=== PATIENT | female | born 2000 | race Caucasian/White ===

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

== ENCOUNTER → 2021-01-01 | Outpatient (CLI) | payer OTHER ==
[~2021-01-01] MED LIST changes: +ONDA4TAB6 PO; +REGL10TA6 PO; +ZOFR4TAB16 PO
--- NOTE | 2021-01-01 14:37 | REP ---
INDICATION: 32+ FERAL GROWTH SIZE VS DATES COMPARISON: None. TECHNIQUE: Transabdominal obstetrical ultrasound with color Doppler evaluation. FINDINGS: Examination demonstrates a single live intrauterine in cephalic presentation. motion is identified by technologist. Placenta is noted posterior and grade 1 without evidence for placenta previa or abruption. Amniotic fluid volume is normal. Gestational age by LMP and 1st U/S 34 weeks 1 day with BEV 02/11/2021. Gestational age by current measurements 34 weeks 4 days with BEV 02/08/2021. FHR equals 153 beats per minute. BPD: 8.5 cm at 34 weeks 1 day HC: 30.8 cm at 34 weeks 2 days AC: 30.0 cm at 33 weeks 6 days FL: 6.7 cm at 34 weeks 5 days HL: 6.2 cm at 35 weeks 6 days HC/AC: 1.03 Estimated weight 2371 grams (46thpercentile). KB: 9.9 cm Umbilical artery SD ratio: 2.37 (1.73-3.67) IMPRESSION: Single live advanced gestation in cephalic presentation demonstrating appropriate estimated weight and growth. <Electronically signed by Daniel Camacho > 01/01/21 [id number]
== END ==
LOC: M RAD 13:39
PROVIDERS: ATTEND Nurse Practitioner Women's Health
DX: O26.843 Uterine size-date discrepancy, third trimester (principal); Z3A.34 34 weeks gestation of pregnancy

== ENCOUNTER 2021-01-06 16:27 | Outpatient (CLI) | payer OTHER ==
[~2021-01-06] VITALS: Ht 154.9 cm; Wt 63.0 kg
[2021-01-06] MEDS ORDERED: UNIS25TA3 PO (16:44)
[2021-01-06] MEDS ORDERED: B6/F1TAB PO (16:46)
[2021-01-06] MEDS ORDERED: URSO300C3 PO (16:46)
[2021-01-06 16:49] VITALS: BP 119/75
[2021-01-06 17:20] VITALS: BP 119/75
--- NOTE | 2021-01-06 17:33 | IPNPDOC ---
Text Note Date of Service The patient was seen on 01/06/21. NOTE 20 yo at 34+6 weeks gestation presented to L&D with the complaint of decreased movement. She has felt movement over the last couple days, but just not as much as usual. She denies any vaginal bleeding or leakage of fluid. She endorses intermittent abdominal tightening but it is not severe. Chaperoned by RN Vitals - VSS, afebrile, normotensive, non tachycardic General - AAOX3, sitting up in bed, NAD Abdomen - Gravid uterus appropriate size for gestational age. No fundal tenderness Extremities - No edema FHR tracing - Cat I with moderate variability, +accels, no decels. no ctx on toco. Bedside TAUS (anatomy not assessed): Viable SIUP in cephalic presentation. KB 14.2 cm. +gross movement. Patient felt movement while in the hospital room and was reassured. FHR Cat I and KB appropriate. No ctx on toco. She has a follow up appointment tomorrow. Return to care sooner for any urgent concerns. All questions answered. 30 minutes of patient care Rocio Dasilva, I+O Rocio PELAYO, I+O Vital Signs Date Time Temp Pulse Resp B/P (MAP) Pulse Ox O2 Delivery O2 Flow Rate FiO2 01/06/21 17:20 83 119/75 (90) 01/06/21 16:49 98.1 14 RAJINDER LOUIS DO Jan 06, 2021 17:33
== END 2021-01-06 17:39 | disposition home or self-care (01) ==
LOC: M LDO 16:27
PROVIDERS: ATTEND Registered Nurse Maternal Newborn
DX: O36.8130 Decreased fetal movements, third trimester, not applicable or unspecified (principal); Z3A.34 34 weeks gestation of pregnancy
CPT/HCPCS: 59025; 76815; G0378; G0463

== ENCOUNTER 2021-01-21 22:04 | Inpatient (IN) | payer OTHER ==
[~2021-01-21] VITALS: Ht 154.9 cm; Wt 66.9 kg
[~2021-01-21 22:04] MED LIST changes: +B6/F1TAB PO; +UNIS25TA3 PO; +URSO300C3 PO
[2021-01-21 22:26] VITALS: BP 124/83
[2021-01-21 22:57] LABS: HEMATOCRIT 34.2 % (36.0-47.0); HEMOGLOBIN 10.9 g/dl (12.0-15.5); MEAN CORPUSCULAR HEMOGLOBIN 27.6 pg (27.0-33.0); MEAN CORPUSCULAR HGB CONC 31.9 g/dl (32.0-36.5); MEAN CORPUSCULAR VOLUME 86.6 fl (80.0-96.0); PLATELET COUNT, AUTOMATED 224 10^3/uL (150-450); RED BLOOD COUNT 3.95 10^6/uL (4.00-5.40); WHITE BLOOD COUNT 12.4 10^3/uL (4.0-10.0)
[2021-01-21 23:28] VITALS: BP 119/74
[2021-01-21] MEDS ORDERED: PENICILLIN G POTASSIUM IV 5 MU in D5W MINI-BAG PLUS 100 ML IV STA (23:57)
[2021-01-22] VITALS (16 sets, daily range): BP systolic 104–190; BP diastolic 53–101
[2021-01-22] MEDS ORDERED: CARBOPROST TROMETHAMINE 250 MCG/ML AMP IM PRN
[2021-01-22] MEDS ORDERED: TRANEXAMIC ACID INJection 1,000 MG in NS 100 ML IV PRN ×2
[2021-01-22] MEDS ORDERED: OXYTOCIN DRIP 30 UNITS in IV 1 EA IV PRN ×6
[2021-01-22] MEDS ORDERED: OXYTOCIN INJ 10 UNITS/ML VIAL (J2590) IM PRN
[2021-01-22] MEDS ORDERED: OXYTOCIN INJ 10 UNITS/ML VIAL (J2590) IV PRN
[2021-01-22] MEDS ORDERED: LIDOCAINE 1% MDV 20ML VIAL INFIL PRN
[2021-01-22] MEDS ORDERED: METHYLERGONOVINE MALEATE 0.2 MG/ML VIAL (J2210) IM PRN
--- NOTE | 2021-01-22 00:22 | HPEPDOC ---
Obstetrical History & Physical General Date of Admission Jan 21, 2021 at 22:04 History of Present Illness Ms. Beverly Patterson is a 20yo G1 at 37w0d ega, by LMP c/w 1st trimester ultrasound, with PNC c/b Cholestasis Of , Depression / Anxiety, and Palpitations / Orthostatic Hypotension who presents for IOL. This evening, Ms. Patterson reports occasional uterine CTXs and denies LOF & VB. Endorses +FM. She also reports continued itching of her palms & soles. Chief Complaint: Other (IOL For Cholestasis Of ) Age: 20 : 1 Term: 0 Pre-term: 0 Abortions: 0 Livin Care Care: Good Care Number of Visits: 6 Dating Final EDC: Feb 11, 2021 Final EDC for Daily Update: Feb 11, 2021 Final EDC by: LMP, 1st trimester (US) LMP: May 07, 2020 1st Trimester Date: Jul 16, 2020 Weeks + Days: 9 Estimated Date of Confinement: Feb 11, 2021 EGA at Admission: 37 Antepartum Course Diagnos(e)s Cholestasis of Anxiety / Depression Palpitations / Orthostatic Hypotension Height (inches): 61 Pre- weight (lbs.): 110 Admission Weight (lbs.): 146.1 Change in Weight (lbs.): 36.1 Past Medical History Past Obstetrical History : Past Obstetrical History: Primgravida PAID INTERN History: No pertinent history Past Medical History Medical History Migraine Headaches with Aura Histocytocytosis Palpitations / Orthostatic Hypotension Surgical History: Other (Colonoscopy) Family History Significant Family History: No pertinent family hx Social History Marital Status: Single Family situation: Spouse/partner home Psychosocial History: Anxiety, Depression * Smoker: non-smoker Alcohol: Denies Drugs: denies Abuse Violence Screening Have you been hit/kicked/slapp: No Have you been sexually assault: No Imunizations Tdap status: declined Influenza Status: declined Allergies Coded Allergies: No Known Allergies (Unverified , 05/01/17) Medications Scheduled Docosahexanoic Acid ( Dha) 200 Mg Capsule, 1 CAP PO DAILY Doxylamine Succinate (Unisom Sleep Aid) 25 Mg Tablet, 1 TAB PO QPM Ursodiol (Ursodiol) 300 Mg Capsule, 1 CAP PO DAILY Miscellaneous Medications B6/Folic/B12/Coffee/Phosphatid (Neuriva Plus Gummy) 0.85MG-200 Tab.chew, 1 EACH PO Physical Examination Physical Examination GENERAL: Alert and oriented times three. ABDOMEN: Gravid and non-tender to touch. FETUS: Is vertex (VTX) by sterile vaginal examination (SVE), fetus is vertex (VTX) by Eduardo. HEART RATE: Regular rate and rhythm. LUNGS: Clear to auscultation (CTA). EXTREMITIES: No edema. Vital Signs/I&O Vital Signs Date Time Temp Pulse Resp B/P (MAP) Pulse Ox O2 Delivery O2 Flow Rate FiO2 01/21/21 23:28 65 18 119/74 (89) 01/21/21 22:26 97.0 Laboratory Data 24H LABS Laboratory Tests 2 01/21/21 22:48: Serology Scanned Report Hepatitis B Testing 01/21/21 22:50: Nucleated Red Blood Cells % (auto) 0.2H CBC/BMP Laboratory Tests 01/21/21 22:50 Urine Culture: No Growth Pertinent Laboratoy Data Blood Type: O+ RBC Antibody Screen: Negative HIV: Negative Hepatitis B: Negative Hepatitis C: Negative Rapid Plasma Reagin: Nonreactive Rubella: Immune Varicella: Immune Chlamydia/Gonorrhea: Negative Group B Streptococcus: Unknown Anatomy Ultrasound Placenta Location: Posterior Normal Anatomy: Yes Placenta Previa: No Steroid Therapy Steroid Therapy: No Vaginal Examination Dilation: None Effacement: 50% Station: -1 Cervical Consistency: Medium Cervical Position: Posterior Presentation: Cephalic presentation Assessment Heart Rate (FHR): 130 Variability: Moderate Accelerations: Positive Decelerations: None Tocometer Contractions: Yes Frequency: irregular Strength: palpated as mild Assessment/Plan Assessment Ms. Beverly Patterson is a 20yo G1 at 37w0d ega, by LMP c/w 1st trimester ultrasound, with PNC c/b Cholestasis Of , Depression / Anxiety, and Pal pitations / Orthostatic Hypotension who presents for IOL with SVE of Closed / 50 / -2. Plan Admit and orient. Medical Interpreter and consent. Diet: Clear Liquid. Group B Streptococcus (GBS) Unknown. PCN for prophylaxis even though patient is 37w0d ega Labs and intravenous (IV) per unit protocol. Counseled on induction of labor (IOL). Cytotec 50mcg po to initiate IOL. Lactated Ringers (LR): 125 mL/hr. Anticipate normal spontaneous delivery (). C-S as appropriate. GANESH MCGREGOR M.D. Jan 22, 2021 00:22
[2021-01-22] MEDS ORDERED: miSOPROStol 50MCG 1/2 TABLET PO ONE (00:25)
[2021-01-22] MEDS ORDERED: TERBUTALINE SULFATE 1 MG/ML VIAL (J3105) As Ordered ONE (01:27)
[2021-01-22] MEDS ORDERED: BUPIVACAINE HCL 0.25% 10ML VIAL SC SCH (01:40)
[2021-01-22] MEDS ORDERED: ceFAZolin SOD 2 GM in IV 1 EA IV ONE (01:40)
[2021-01-22] MEDS ORDERED: BICITRA 30ML SOLN UDC PO ONE (01:40)
--- NOTE | 2021-01-22 01:40 | IPNPDOC ---
Text Note Date of Service The patient was seen on 01/22/21. NOTE Ms. Beverly Patterson is a 20yo G1 at 37w0d ega, by LMP c/w 1st trimester u ltrasound, with PNC c/b Cholestasis Of , Depression / Anxiety, and Palpitations / Orthostatic Hypotension undergoing IOL. Pt received Cytotec 50mcg po and experienced a prolonged deceleration to the 60s secondary to uterine contraction. 0.25mg Terbutaline IM given with uterine relaxation & return of the FHT to baseline. Patient elected to proceed with PLTCS. The R/B/I/A of the procedure were reviewed and informed consent was obtained. - Ancef 2-grams iv provided - Bicitra po Geovanna Jensen., Ph.D. LEONARD Staff VS,Rocio, I+O VS, Rocio I+O Laboratory Tests 01/21/21 22:50 Vital Signs Date Time Temp Pulse Resp B/P (MAP) Pulse Ox O2 Delivery O2 Flow Rate FiO2 01/21/21 23:28 65 18 119/74 (89) 01/21/21 22:26 97.0 GANESH MCGREGOR M.D. Jan 22, 2021 01:40
[2021-01-22] MEDS ORDERED: ceFAZolin 2 GM/D5W 50 ML IV BAG (J0690 PER 500MG) As Ordered ONE (01:42)
[2021-01-22] MEDS ORDERED: BICITRA 30ML SOLN UDC As Ordered ONE (01:42)
[2021-01-22] MEDS ORDERED: diphenhydrAMINE 50MG/ML VIAL (J1200) IV PRN (02:16)
[2021-01-22] MEDS ORDERED: NALOXONE INJ 0.4MG/1ML VIAL (J2310 PER 1MG) IV PRN ×2 (02:16)
[2021-01-22] MEDS ORDERED: NALBUPHINE HCL 10 MG/ML AMP (J2300) IV PRN (02:16)
[2021-01-22] MEDS ORDERED: METOCLOPRAMIDE INJ 10MG/2ML VIAL (J2765 PER 1) IV PRN ×2 (02:16→03:15)
[2021-01-22] MEDS ORDERED: ONDANSETRON 4MG/2ML VIAL IV PRN ×2 (02:16→03:15)
[2021-01-22] MEDS ORDERED: MORPHINE PRES-FREE INJ 10 MG/10 ML VIAL (J2274) As Ordered ONE (02:46)
[2021-01-22] MEDS ORDERED: KETOROLAC 60MG 2ML VIAL As Ordered ONE (02:46)
[2021-01-22] MEDS ORDERED: OXYTOCIN 30 UNITS IN 0.9% NaCl 500ML IV BAG (J2590) As Ordered ONE ×2 (02:46→03:06)
[2021-01-22] MEDS ORDERED: ONDANSETRON 4MG/2ML VIAL As Ordered ONE (02:46)
[2021-01-22] MEDS ORDERED: dexameTHASONE 4 MG/ML 1ML VIAL (J1100 PER 1MG) As Ordered ONE (02:46)
[2021-01-22 02:58] LABS: CORD GAS ABE A -1.6; CORD GAS ABE V -1.9; CORD GAS HCO3 A 27.2 MEQ/L; CORD GAS HCO3 V 25.6 MEQ/L; CORD GAS O2 SAT A 46.9 %; CORD GAS PCO2 A 62.8 mmHg; CORD GAS PCO2 V 53.8 mmHg; CORD GAS PH A 7.255 UNITS; CORD GAS PH V 7.295 UNITS; CORD GAS PO2 A 23.1 mmHg; CORD GAS PO2 V 27.6 mmHg; CORD GAS SBC A 21.8 MEQ/L; CORD GAS TCO2 A 29.2 MEQ/L; CORD GAS TCO2 V 27.2 MEQ/L
[2021-01-22] MEDS ORDERED: TRANEXAMIC ACID 100 MG/ML 10ML VIAL As Ordered ONE (03:03)
[2021-01-22] MEDS ORDERED: METOCLOPRAMIDE INJ 10MG/2ML VIAL (J2765 PER 1) As Ordered ONE (03:08)
[2021-01-22] MEDS ORDERED: KETOROLAC 30 MG/ML 1ML VIAL IV PRN (03:15)
[2021-01-22] MEDS ORDERED: PERCOCET 5MG/325MG TAB PO PRN (03:15)
[2021-01-22] MEDS ORDERED: fentaNYL 100 MCG/2 ML INJECTION (J3010) IV PRN (03:15)
[2021-01-22] MEDS ORDERED: LR 1,000 ML IV SCH ×3 (03:15→03:20)
[2021-01-22] MEDS ORDERED: SIMETHICONE 80MG CHEW TAB PO PRN (03:20)
[2021-01-22] MEDS ORDERED: ONDANSETRON 4 MG TAB PO PRN (03:20)
[2021-01-22] MEDS ORDERED: RHOGAM 300 MCG (1500 IU) INJ (J2790) IM SCH (03:20)
[2021-01-22] MEDS ORDERED: ACETAMINOPHEN TAB 650MG DOSE (2X325MG) PO PRN (03:20)
[2021-01-22] MEDS ORDERED: DOCUSATE SODIUM 100MG CAPSULE PO PRN (03:20)
[2021-01-22] MEDS ORDERED: oxyCODONE 5MG TAB PO PRN (03:20)
[2021-01-22] MEDS ORDERED: OXYTOCIN DRIP 30 UNITS in IV 1 EA IV SCH (03:20)
--- NOTE | 2021-01-22 03:39 | ROOPDOC ---
[facility] Report Of Operation Report of Operation DATE OF PROCEDURE: PREPROCEDURE DIAGNOSES: 1) Term intrauterine . 2) Cholestasis Of . 3) Non-Reassuring Heart Tracing (NRFHT). POSTPROCEDURE DIAGNOSES: 1) Same As Above. 2) Delivered Via Primary Low Transverse Delivery (PLTCS). PROCEDURE: Primary Low Transverse Section (PLTCS). SURGEON: Rojelio Mcgregor MD, PhD PORTER BAGGAGE: Teresa Francis MD ANESTHESIA: Spinal. ESTIMATED BLOOD LOSS: 400mL. COMPLICATIONS: None. REMARKS: This procedure was productive of a viable male weighing 2790- grams with APGARS 9 / 9. Estimated blood loss 400mL. 275cc of clear, yellow urine. Normal appearing uterus & bilateral fallopian tubes and ovaries. The hysterotomy was repaired in 2-layers with 0-Monocryl. A single [id number] as placed in the middle of the hysterotomy using 2-O Vicryl. The vesicouterine peritoneum was closed in a running fashion with 2-O Vicryl. Fascia closed with 0-Vicryl in a running fashion. Subcutaneous tissue was closed with a 2-O Vicryl in a running fashion. Skin was closed with 3-0 Monocryl on a Leighton needle. PROCEDURE NOTE: See above. DESCRIPTION OF PROCEDURE: The risks, benefits, indications, and alternatives of the procedure were reviewed with the patient and informed consent was obtained. The patient was then taken to the operating room where spinal anesthesia was obtained without difficulty. She was then prepped and draped in the normal, sterile fashion in the dorsal supine position with a leftward tilt. A Pfannenstiel incision was then made with a scalpel and carried through to the underlying layer fascia. The fascia was incised in the midline and the incision extended laterally with the Woodard scissors. The superior aspect of the fascial incision was grasped with the Homero clamps elevated and the underlying rectus muscles dissected off with Woodard scissors. Attention was then turned to the inferior aspect of the incision which in a similar fashion was grasped, tented up with the Homero clamps, and the rectus muscles dissected off with Woodard scissors. The rectus muscles were then in the midline and the peritoneum identified, tented up, and entered digitally. The peritoneal incision was then extended horizontally with good visualization of the bladder. The bladder blade was then inserted. The vesicouterine peritoneum was then identified grasped with the pickups and entered sharply with the Metzenbaum scissors. The incision was then extended laterally and the bladder flap created digitally. The bladder blade was subsequently reinserted. Next the lower uterine segment was incised in a transverse fashion with the scalpel. The uterine incision was then extended manually and the amniotic sac was artificially ruptured productive of clear fluid. The bladder blade was removed and the infant's head delivered atraumatically through the hysterotomy without difficulty. The nose and mouth were suctioned with a bulb syringe and the cord doubly clamped and cut. The was handed off to the waiting baby nurses. Cord gases were then obtained. The placenta was then removed spontaneously with gentle traction on the umbilical cord. The uterus was then exteriorized and cleared of all clots and debris. The uterine incision was repaired with 0-Monocryl in a running, locked fashion. A second layer of 0-Monocryl was then used to imbricate the hysterotomy in a horizontal fashion. One bnlluf-ee-juyet suture using 2-O Vicryl was then placed in the middle aspect of the incision to obtain excellent hemostasis. The vesicouterine peritoneum was then closed with a 2-O Vicryl in a running fashion. The uterus was then returned to the abdomen and the hysterotomy was again noted to be hemostatic. The fascia was then reapproximated with 0-Vicryl in a running fashion. There was generalized oozing of the subcutaneous layer. The Bovie electrocautery was used to obtain hemostasis. 1-gram TX was given. The subcutaneous tissue was subsequently closed with 2-0 Vicryl in a running fashion. Next the skin was closed with 4-0 Monocryl on a Leighton needle in a subcuticular fashion. The skin incision was then dressed with Steri-Strips and a pressure dressing applied. At the completion of the case bimanual exam was performed with good uterine tone and minimal vaginal bleeding. The patient tolerated the procedure well. Sponge, lap, and needle counts were correct x3. The patient was taken to the recovery room in stable condition. GANESH MCGREGOR M.D. Jan 22, 2021 03:39
[2021-01-22] MEDS ORDERED: TERBUTALINE SULFATE 1 MG/ML VIAL (J3105) SC STA (03:43)
[2021-01-22] MEDS ORDERED: PENICILLIN G POTASSIUM IV 2.5 MU in IV 1 EA IV SCH (05:00)
[2021-01-22] MEDS: PRENATAL VITAMINS CHEWABLE TABLET PO SCH (08:47)
[2021-01-22] MEDS: KETOROLAC 30 MG/ML 1ML VIAL IV SCH ×3 (08:47→21:06)
[2021-01-23] MEDS: oxyCODONE 5MG TAB PO PRN (00:38)
[2021-01-23 02:29] VITALS: BP 118/76
[2021-01-23] MEDS: IBUPROFEN 800 MG TAB PO SCH ×3 (05:36→21:29)
[2021-01-23 06:23] VITALS: BP 99/50
--- NOTE | 2021-01-23 07:56 | IPNPDOC ---
Progress Note Date of Service: Jan 23, 2021 Progress Note 20 yo G1 now P1 POD#1 s/p uncomplicated PLTCS for NRFHT after IOL for ICP. No acute events. Beverly reports feeling well. She is ambulating, voiding, tolerating a regular diet. Lochia is minimal. Pain is well controlled. Vitals - VSS, afebrile, normotensive, non tachycardic GEneral - AAOX3, sitting up in bed, NAD Abdomen - Fundus firm at U-2. No fundal tenderness. Incision C/D/I. Steri strips in place. No tenderness. Extremities - No edema Labs: pre op H/H 10.9/34.2 --> pending post op CBC Beverly is doing well and is making an appropriate recovery. Continue routine care. Discharge home tomorrow. All questions answered. Jean Claude VS, I&O, 24H, Rocio Vital Signs/I&O Vital Signs Date Time Temp Pulse Resp B/P (MAP) Pulse Ox O2 Delivery O2 Flow Rate FiO2 01/23/21 06:23 98.4 61 16 99/50 (66) 01/23/21 02:29 97 Room Air I&O- Last 24 Hours up to 6 AM 01/23/21 06:00 Output Total 1000 ml Balance -1000 ml RAJINDER LOUIS DO Jan 23, 2021 07:56
[2021-01-23 08:21] LABS: HEMATOCRIT 27.8 % (36.0-47.0); MEAN CORPUSCULAR HEMOGLOBIN 28.1 pg (27.0-33.0); MEAN CORPUSCULAR HGB CONC 31.7 g/dl (32.0-36.5); MEAN CORPUSCULAR VOLUME 88.8 fl (80.0-96.0); PLATELET COUNT, AUTOMATED 176 10^3/uL (150-450); RED BLOOD COUNT 3.13 10^6/uL (4.00-5.40); WHITE BLOOD COUNT 12.3 10^3/uL (4.0-10.0)
[2021-01-23] MEDS: PRENATAL VITAMINS CHEWABLE TABLET PO SCH (08:23)
[2021-01-23 08:28] LABS: HEMOGLOBIN 8.8 g/dl (12.0-15.5)
[2021-01-23 10:00] VITALS: BP 103/61
[2021-01-23 14:00] VITALS: BP 115/53
[2021-01-23 17:58] VITALS: BP 113/58
[2021-01-23 22:00] VITALS: BP 117/64
[2021-01-24 02:00] VITALS: BP 95/55
[2021-01-24] MEDS: oxyCODONE 5MG TAB PO PRN (03:35)
[2021-01-24] MEDS: IBUPROFEN 800 MG TAB PO SCH (05:29)
[2021-01-24 06:00] VITALS: BP 105/57
--- NOTE | 2021-01-24 07:15 | IPNPDOC ---
Progress Note Date of Service: Jan 24, 2021 Day#: 2 Progress Note SUBJECT: Ms. Rachel is a 20yo POD2 after a primary for category II heart tracing during induction for intrahepatic cholestasis of . She has been ambulating, voiding spontaneously without issue and tolerating regular diet. Breast feeding without issue. Reports lochia is like a normal period. Patient is ambulating well. Reports some cramping with . Denies any pain. Voiding and stooling without difficulty. APC 1. depression, anxiety 2. orthostatic hypotension and palpations 3. intrahepatic cholestasis of 4. migraines with aura 5. histocytosis OBJECTIVE: VITAL SIGNS: Within normal limits, afebrile. Alert and oriented times three. no increased WOB Heart rate: non-tachy Abdomen: Fundus firm at U-2. Soft, NTTP. pfannanstiel incision is clean dry and well approx with steri sterips no erythema or dischagre Minimal lochia per patient ASSESSMENT: Ms. Rachel is a 20yo POD2 after a primary for category II heart tracing. Hemoglobin went from 10.9 to 8.8 and the patient denied signs or symptoms of anemia. Vitals within normal limits, afebrile, hemodynamically stable with no evidence of infection. PLAN: 1. Discharge to home today. 2. Tylenol and Motrin for pain. 3. Encourage breast feeding and ambulation. 4. Depo-provera ordered for contraception prior to discharge 5. Routine visit in 2 and 6 weeks in clinic. 6. Discussed return precautions at length to include lifting restrictions and pelvic rest. VS, I&O, 24H, Fishbone Vital Signs/I&O Vital Signs Date Time Temp Pulse Resp B/P (MAP) Pulse Ox O2 Delivery O2 Flow Rate FiO2 01/24/21 06:00 97.1 61 16 105/57 (73) 98 Room Air Laboratory Data 24H LABS Laboratory Tests 2 01/23/21 07:49: Nucleated Red Blood Cells % (auto) 0.0 CBC/BMP Laboratory Tests 01/23/21 07:49 CARLOS GILL DO Jan 24, 2021 07:15
--- NOTE | 2021-01-24 07:17 | OBDS ---
[facility] Obstetrical Discharge Sum. A/P, Post Course List any complications Ms. Rachel is a 20yo after a primary for category II heart tracing during induction for intrahepatic cholestasis of . She has been ambulating, voiding spontaneously without issue and tolerating regular diet. Breast feeding without issue. Reports lochia is like a normal period. Patient is ambulating well. Reports some cramping with . Denies any pain. Voiding and stooling without difficulty. Hemoglobin went from 10.9 to 8.8 and the patient denied signs or symptoms of anemia. Vitals within normal limits, afebrile, hemodynamically stable with no evidence of infection. APC 1. depression, anxiety 2. orthostatic hypotension and palpations 3. intrahepatic cholestasis of 4. migraines with aura 5. histocytosis PLAN: 1. Discharge to home today. 2. Tylenol and Motrin for pain. 3. Encourage breast feeding and ambulation. 4. Depo-provera ordered for contraception prior to discharge 5. Routine visit in 2 and 6 weeks in clinic. 6. Discussed return precautions at length to include lifting restrictions and pelvic rest. CARLOS GILL DO Jan 24, 2021 07:17
[2021-01-24] MEDS: PRENATAL VITAMINS CHEWABLE TABLET PO SCH (08:09)
[2021-01-24 10:00] VITALS: BP 125/68
[2021-01-24] MEDS ORDERED: medroxyPROGESTERone ACET IM SUSP 150 MG/ML VIAL (J1050) IM ONE (13:00)
--- NOTE | 2021-01-25 12:59 | IPN ---
PROGRESS NOTE DATE: 01/22/2021 SUBJECTIVE: This patient requested circumcision of their male infant. After discussing risks and benefits of circumcision, the medical and nonmedical indications, the penile block and aftercare, expressed understanding of penile block, aftercare and bleeding, signed the consent form. All questions were answered, 20 minute discussion. We await clearance by the state assessed properties director.
== END 2021-01-24 12:25 | disposition home or self-care (01) | DRG 771 ==
LOC: M LDI 22:04 → M OBS 01-22 05:10
PROVIDERS: ADMIT Obstetrics & Gynecology Reproductive Endocrinology; ATTEND Obstetrics & Gynecology Reproductive Endocrinology
PROC: 3E0P7GC Introduction of Other Therapeutic Substance into Female Reproductive, Via Natural or Artificial Opening (ICD-10-PCS; 2021-01-22)
PROC: 10D00Z1 Extraction of Products of Conception, Low, Open Approach (ICD-10-PCS; principal; 2021-01-22 02:20)
DX: O26.62 Liver and biliary tract disorders in childbirth (principal); K83.1 Obstruction of bile duct; Z3A.37 37 weeks gestation of pregnancy; Z37.0 Single live birth; O34.211 Maternal care for low transverse scar from previous cesarean delivery; O76 Abnormality in fetal heart rate and rhythm complicating labor and delivery; I95.1 Orthostatic hypotension

== ENCOUNTER 2021-02-24 22:43 | Emergency (ER) | payer OTHER ==
[~2021-02-24] VITALS: Ht 154.9 cm; Wt 56.5 kg
[2021-02-25] MEDS ORDERED: NS 1,000 ML IV ONE (04:10)
[2021-02-25 05:30] LABS: BASO # 0.1 10^3/uL (0.0-0.2); BASO % 0.7 % (0.0-1.0); EOS % 0.3 % (0.0-3.0); HEMATOCRIT 37.7 % (36.0-47.0); HEMOGLOBIN 11.8 g/dl (12.0-15.5); LYMPH # 2.5 10^3/uL (1.5-5.0); LYMPH % 33.5 % (24.0-44.0); MEAN CORPUSCULAR HEMOGLOBIN 26.6 pg (27.0-33.0); MEAN CORPUSCULAR HGB CONC 31.3 g/dl (32.0-36.5); MEAN CORPUSCULAR VOLUME 85.1 fl (80.0-96.0); MONO # 0.5 10^3/uL (0.0-0.8); MONO % 6.9 % (2.0-8.0); NEUTROPHILS # 4.3 10^3/uL (1.5-8.5); NEUTROPHILS % 58.3 % (36.0-66.0); PLATELET COUNT, AUTOMATED 259 10^3/uL (150-450); RED BLOOD COUNT 4.43 10^6/uL (4.00-5.40); WHITE BLOOD COUNT 7.4 10^3/uL (4.0-10.0)
[2021-02-25] MEDS ORDERED: ISOVUE-370 76% 100ML VIAL As Ordered ONE (05:58)
[2021-02-25 05:59] LABS: ALBUMIN 4.1 GM/DL (3.2-5.2); ALT/SGPT 21 U/L (12-78); BILIRUBIN,DIRECT < 0.1 MG/DL (0.0-0.2); BILIRUBIN,TOTAL 0.5 MG/DL (0.2-1.0); BLOOD UREA NITROGEN 7 MG/DL (7-18); CARBON DIOXIDE LEVEL 24 MEQ/L (21-32); CHLORIDE LEVEL 109 MEQ/L (98-107); CREATININE FOR GFR 0.72 MG/DL (0.55-1.30); GLUCOSE, FASTING 88 MG/DL (70-100); LIPASE 81 U/L (73-393); POTASSIUM SERUM 4.6 MEQ/L (3.5-5.1); SODIUM LEVEL 139 MEQ/L (136-145); TOTAL PROTEIN 7.3 GM/DL (6.4-8.2)
[2021-02-25 06:03] LABS: HCG, SERUM QUALITATIVE NEGATIVE (NEGATIVE)
--- NOTE | 2021-02-25 08:40 | REPVR ---
PROCEDURE INFORMATION: Exam: CT Abdomen And Pelvis With Contrast Exam date and time: 02/25/2021 5:48 AM Age: 20 years old Clinical indication: Other: C/s dehiscence with discharge TECHNIQUE: Imaging protocol: Computed tomography of the abdomen and pelvis with contrast. Radiation optimization: All CT scans at this facility use at least one of these dose optimization techniques: automated exposure control; mA and/or kV adjustment per patient size (includes targeted exams where dose is matched to clinical indication); or iterative reconstruction. Contrast material: ISOVUE 370; Contrast volume: 100 ml; Contrast route: INTRAVENOUS (IV); COMPARISON: CT ABD/PEL W/IV CONTRAST ONLY 02/12/2019 9:02 PM FINDINGS: Limitations: None. Lungs: The visualized lung bases are clear. Mediastinal space: Stable tiny hiatal hernia. Liver: No focal liver lesions or ductal dilatation. Gallbladder and bile ducts: Collapsed gallbladder without stones or choledocholithiasis. Pancreas: Normal. No ductal dilation. Spleen: Normal. No splenomegaly. Adrenal glands: Normal. No mass. Kidneys and ureters: Lobulated kidneys comparable to the prior without stone or hydronephrosis. No obvious solid renal mass. Stomach and bowel: The stomach is poorly distended. Mild retained stool throughout the colon. Appendix: Air filled appendix without secondary signs of acute appendicitis. Intraperitoneal space: Unremarkable. No free air. No significant fluid collection. Vasculature: Unremarkable. No abdominal aortic aneurysm. Lymph nodes: Unremarkable. No enlarged lymph nodes. Urinary bladder: Urinary bladder is distended without filling defects within. Reproductive: Mildly heterogeneous and lobulated uterus possibly due to the patient's recent delivery and section. Low-density adnexal structures measuring 4 cm on the right and 25 mm on the left probably the ovaries. Bones/joints: Early disc space loss and retrolisthesis with a bulging disc at L5-S1. No acute fracture. Soft tissues: Tiny fatty umbilical hernia without bowel. Mild fatty stranding along the anterior pelvic wall without formed fluid collection. IMPRESSION: 1. No bowel obstruction or free air. 2. Adnexal structures and mildly heterogeneous uterus without obvious abdominal wall or other abscess. 3. No renal stones or gallstones. Electronically signed by: Zachery Samson On 02/25/2021 08:39:41 AM
[2021-02-25] MEDS ORDERED: FLAG500T PO (09:19)
[2021-02-25] MEDS ORDERED: CEPH500T PO (09:19)
[2021-02-25 09:30] VITALS: BP 102/59
== END 2021-02-25 09:47 | disposition home or self-care (01) ==
LOC: M ED 22:43
DX: L76.34 Postprocedural seroma of skin and subcutaneous tissue following other procedure (principal)
CPT/HCPCS: 36415; 74177; 80047; 80048; 80076; 83605; 83690; 84703; 85025; 87040; 87070; 87077; 87186; 93041; 96360; 99285; Q9967

== ENCOUNTER 2022-03-12 18:56 | Emergency (ER) | payer OTHER ==
[~2022-03-12] VITALS: Ht 154.9 cm; Wt 46.6 kg
[~2022-03-12 18:56] MED LIST changes: +CEPH500T PO; +FLAG500T PO
[2022-03-12] MEDS ORDERED: RIZA10TA58 PO (19:24)
[2022-03-13 02:11] LABS: BASO # 0.1 10^3/uL (0.0-0.2); BASO % 0.9 % (0.0-1.0); EOS # 0.1 10^3/uL (0.0-0.5); HEMATOCRIT 35.3 % (36.0-47.0); HEMOGLOBIN 11.7 g/dl (12.0-15.5); LYMPH # 3.7 10^3/uL (1.5-5.0); LYMPH % 47.5 % (24.0-44.0); MEAN CORPUSCULAR HEMOGLOBIN 29.8 pg (27.0-33.0); MEAN CORPUSCULAR HGB CONC 33.1 g/dl (32.0-36.5); MEAN CORPUSCULAR VOLUME 89.8 fl (80.0-96.0); MONO # 0.6 10^3/uL (0.0-0.8); MONO % 7.6 % (2.0-8.0); NEUTROPHILS # 3.4 10^3/uL (1.5-8.5); NEUTROPHILS % 42.9 % (36.0-66.0); PLATELET COUNT, AUTOMATED 269 10^3/uL (150-450); RED BLOOD COUNT 3.93 10^6/uL (4.00-5.40); WHITE BLOOD COUNT 7.9 10^3/uL (4.0-10.0)
[2022-03-13 02:41] LABS: HCG, SERUM QUALITATIVE NEGATIVE (NEGATIVE)
[2022-03-13 02:50] LABS: ALBUMIN 3.8 GM/DL (3.2-5.2); ALT/SGPT 16 U/L (12-78); BILIRUBIN,TOTAL 0.3 MG/DL (0.2-1.0); BLOOD UREA NITROGEN 13 MG/DL (7-18); CALCIUM LEVEL 8.9 MG/DL (8.5-10.1); CARBON DIOXIDE LEVEL 26 MEQ/L (21-32); CHLORIDE LEVEL 110 MEQ/L (98-107); CREATININE FOR GFR 0.77 MG/DL (0.55-1.30); GLUCOSE, FASTING 94 MG/DL (70-100); LIPASE 106 U/L (73-393); POTASSIUM SERUM 4.3 MEQ/L (3.5-5.1); SODIUM LEVEL 139 MEQ/L (136-145); TOTAL PROTEIN 6.8 GM/DL (6.4-8.2)
[2022-03-13] MEDS ORDERED: ISOVUE-370 76% 100ML VIAL As Ordered ONE (03:02)
[2022-03-13 04:41] VITALS: BP 109/62
== END 2022-03-13 05:27 | disposition home or self-care (01) ==
LOC: M ED 18:56
DX: K58.1 Irritable bowel syndrome with constipation (principal)

== ENCOUNTER → 2022-06-12 | Outpatient (CLI) | payer OTHER ==
[~2022-06-12] MED LIST changes: +RIZA10TA58 PO
== END ==
LOC: M RAD 07:35
PROVIDERS: ATTEND Internal Medicine Gastroenterology
DX: R11.0 Nausea (principal)

== ENCOUNTER 2022-06-24 08:52 | Emergency (ER) | payer OTHER, SELFPAY ==
[~2022-06-24] VITALS: Ht 154.9 cm; Wt 46.1 kg
[2022-06-24] MEDS ORDERED: ACETAMINOPHEN 500 MG TAB PO ONE (11:35)
[2022-06-24] MEDS ORDERED: NS 1,000 ML IV ONE (11:35)
[2022-06-24 12:00] LABS: BASO # 0.1 10^3/uL (0.0-0.2); BASO % 0.5 % (0.0-1.0); EOS % 0.2 % (0.0-3.0); HEMATOCRIT 42.3 % (36.0-47.0); LYMPH # 2.2 10^3/uL (1.5-5.0); LYMPH % 12.3 % (24.0-44.0); MEAN CORPUSCULAR HGB CONC 33.1 g/dl (32.0-36.5); MEAN CORPUSCULAR VOLUME 90.8 fl (80.0-96.0); MONO # 0.9 10^3/uL (0.0-0.8); MONO % 4.9 % (2.0-8.0); NEUTROPHILS # 14.3 10^3/uL (1.5-8.5); NEUTROPHILS % 81.6 % (36.0-66.0); PLATELET COUNT, AUTOMATED 284 10^3/uL (150-450); RED BLOOD COUNT 4.66 10^6/uL (4.00-5.40); WHITE BLOOD COUNT 17.5 10^3/uL (4.0-10.0)
[2022-06-24 12:46] LABS: ALBUMIN 4.5 G/DL (3.2-5.2); ALT/SGPT 11 U/L (7.0-40); BILIRUBIN,TOTAL 0.6 MG/DL (0.3-1.2); BLOOD UREA NITROGEN 9 MG/DL (9-23); CALCIUM LEVEL 9.2 MG/DL (8.5-10.1); CARBON DIOXIDE LEVEL 24 MMOL/L (20-31); CHLORIDE LEVEL 105 MMOL/L (98-107); CREATININE FOR GFR 0.71 MG/DL (0.55-1.30); GLUCOSE, FASTING 93 MG/DL (60-100); POTASSIUM SERUM 4.1 MMOL/L (3.5-5.1); SODIUM LEVEL 139 MMOL/L (136-145); TOTAL PROTEIN 7.5 G/DL (5.7-8.2)
[2022-06-24 13:59] VITALS: BP 121/67
== END 2022-06-24 16:30 | disposition home or self-care (01) ==
LOC: M ED 08:52
DX: S06.0X0A Concussion without loss of consciousness, initial encounter (principal); S63.501A Unspecified sprain of right wrist, initial encounter; S30.0XXA Contusion of lower back and pelvis, initial encounter; W00.0XXA Fall on same level due to ice and snow, initial encounter; Y92.009 Unspecified place in unspecified non-institutional (private) residence as the place of occurrence of the external cause; D72.829 Elevated white blood cell count, unspecified; R51.9 Headache, unspecified; F32.A Depression, unspecified; F41.9 Anxiety disorder, unspecified; Z79.899 Other long term (current) drug therapy

== ENCOUNTER → 2022-07-23 | Outpatient (CLI) | payer OTHER, SELFPAY | LOC: M RAD 08:12 | PROVIDERS: ATTEND Internal Medicine Gastroenterology | DX: K82.8 Other specified diseases of gallbladder (principal) | CPT/HCPCS: 78227; A9537 ==

== ENCOUNTER → 2023-03-17 | Outpatient (CLI) | payer MEDICAID, OTHER ==
[2023-03-17 11:39] LABS: BASO # 0.1 10^3/uL (0.0-0.2); BASO % 0.8 % (0.0-1.0); EOS % 0.6 % (0.0-3.0); HEMOGLOBIN 13.7 g/dl (12.0-15.5); LYMPH % 46.2 % (24.0-44.0); MEAN CORPUSCULAR HGB CONC 33.4 g/dl (32.0-36.5); MEAN CORPUSCULAR VOLUME 89.9 fl (80.0-96.0); MONO # 0.5 10^3/uL (0.0-0.8); MONO % 6.8 % (2.0-8.0); NEUTROPHILS % 45.3 % (36.0-66.0); PLATELET COUNT, AUTOMATED 288 10^3/uL (150-450); RED BLOOD COUNT 4.56 10^6/uL (4.00-5.40); WHITE BLOOD COUNT 6.6 10^3/uL (4.0-10.0)
[2023-03-17 11:54] LABS: HEMOGLOBIN A1c 5.6 % (4.0-6.0)
[2023-03-17 12:10] LABS: ALBUMIN 4.3 G/DL (3.2-5.2); ALKALINE PHOSPHATASE 82 U/L (46-116); ALT/SGPT < 9 U/L (7.0-40); AST/SGOT < 8 U/L (<34); BILIRUBIN,TOTAL 0.6 MG/DL (0.3-1.2); BLOOD UREA NITROGEN 9 MG/DL (9-23); CALCIUM LEVEL 9.5 MG/DL (8.5-10.1); CARBON DIOXIDE LEVEL 26 MMOL/L (20-31); CHLORIDE LEVEL 107 MMOL/L (98-107); CREATININE FOR GFR 0.74 MG/DL (0.55-1.30); GLOMERULAR FILTRATION RATE > 60.0 (>60); GLUCOSE, FASTING 90 MG/DL (60-100); POTASSIUM SERUM 4.5 MMOL/L (3.5-5.1); SODIUM LEVEL 140 MMOL/L (136-145); TOTAL PROTEIN 7.3 G/DL (5.7-8.2)
[2023-03-17 12:13] LABS: FREE T4 1.34 NG/DL (0.89-1.76)
[2023-03-17 12:14] LABS: FOLATE 14.2 NG/ML (>5.4); THYROID STIMULATING HORMONE 1.424 uIU/ML (0.55-4.78); TOTAL 25(OH) VITAMIN D 22.3 NG/ML (20.0-100.0)
[2023-03-17 12:15] LABS: VITAMIN B12 LEVEL 419 PG/ML (211-911)
== END ==
LOC: M LAB 11:07
PROVIDERS: ATTEND Family Medicine
DX: C96.6 Unifocal Langerhans-cell histiocytosis (principal); R53.83 Other fatigue

== ENCOUNTER 2023-03-26 19:40 | Emergency (ER) | payer MEDICAID, OTHER ==
[~2023-03-26] VITALS: Ht 154.9 cm; Wt 50.9 kg
[2023-03-26 20:57] LABS: BASO # 0.1 10^3/uL (0.0-0.2); BASO % 0.8 % (0.0-1.0); EOS % 0.5 % (0.0-3.0); HEMOGLOBIN 12.4 g/dl (12.0-15.5); LYMPH # 3.3 10^3/uL (1.5-5.0); LYMPH % 37.8 % (24.0-44.0); MEAN CORPUSCULAR HEMOGLOBIN 29.3 pg (27.0-33.0); MEAN CORPUSCULAR HGB CONC 32.6 g/dl (32.0-36.5); MEAN CORPUSCULAR VOLUME 89.8 fl (80.0-96.0); MONO # 0.6 10^3/uL (0.0-0.8); MONO % 7.4 % (2.0-8.0); NEUTROPHILS # 4.6 10^3/uL (1.5-8.5); NEUTROPHILS % 53.3 % (36.0-66.0); PLATELET COUNT, AUTOMATED 273 10^3/uL (150-450); RED BLOOD COUNT 4.23 10^6/uL (4.00-5.40); WHITE BLOOD COUNT 8.7 10^3/uL (4.0-10.0)
[2023-03-26 21:18] LABS: ALKALINE PHOSPHATASE 82 U/L (46-116); ALT/SGPT < 9 U/L (7.0-40); AST/SGOT < 8 U/L (<34); BILIRUBIN,TOTAL 0.4 MG/DL (0.3-1.2); BLOOD UREA NITROGEN 13 MG/DL (9-23); CALCIUM LEVEL 9.1 MG/DL (8.5-10.1); CARBON DIOXIDE LEVEL 23 MMOL/L (20-31); CHLORIDE LEVEL 107 MMOL/L (98-107); CREATININE FOR GFR 0.85 MG/DL (0.55-1.30); GLOMERULAR FILTRATION RATE > 60.0 (>60); GLUCOSE, FASTING 96 MG/DL (60-100); SODIUM LEVEL 142 MMOL/L (136-145); TOTAL PROTEIN 7.1 G/DL (5.7-8.2)
[2023-03-27 00:20] VITALS: BP 116/76; TEMP 97.8; O2SAT 100
== END 2023-03-27 03:58 | disposition left against medical advice (07) ==
LOC: M ED 19:40
DX: Z53.21 Procedure and treatment not carried out due to patient leaving prior to being seen by health care provider (principal)

== ENCOUNTER 2023-05-27 14:01 | Emergency (ER) | payer OTHER ==
[~2023-05-27] VITALS: Ht 154.9 cm; Wt 49.2 kg
[~2023-05-27 14:01] MED LIST changes: +LINZ145C PO; +RIZA5TAB2
[2023-05-27] MEDS ORDERED: METOCLOPRAMIDE INJ 10MG/2ML VIAL IV ONE (17:00)
[2023-05-27] MEDS ORDERED: NS 1,000 ML IV ONE (17:00)
[2023-05-27 17:33] LABS: BASO # 0.1 10^3/uL (0.0-0.2); BASO % 0.8 % (0.0-1.0); EOS # 0.1 10^3/uL (0.0-0.5); EOS % 0.8 % (0.0-3.0); HEMOGLOBIN 14.2 g/dl (12.0-15.5); LYMPH # 3.9 10^3/uL (1.5-5.0); LYMPH % 47.1 % (24.0-44.0); MEAN CORPUSCULAR HEMOGLOBIN 30.5 pg (27.0-33.0); MEAN CORPUSCULAR HGB CONC 33.8 g/dl (32.0-36.5); MEAN CORPUSCULAR VOLUME 90.1 fl (80.0-96.0); MONO # 0.6 10^3/uL (0.0-0.8); MONO % 7.1 % (2.0-8.0); NEUTROPHILS # 3.6 10^3/uL (1.5-8.5); PLATELET COUNT, AUTOMATED 283 10^3/uL (150-450); RED BLOOD COUNT 4.66 10^6/uL (4.00-5.40); WHITE BLOOD COUNT 8.3 10^3/uL (4.0-10.0)
[2023-05-27 17:48] LABS: ERYTHROCYTE SEDIMENTATION RATE < 1 mm/hr (0-20)
[2023-05-27 17:55] LABS: BLOOD UREA NITROGEN 9 MG/DL (9-23); CALCIUM LEVEL 9.6 MG/DL (8.5-10.1); CARBON DIOXIDE LEVEL 26 MMOL/L (20-31); CHLORIDE LEVEL 104 MMOL/L (98-107); CREATININE FOR GFR 0.75 MG/DL (0.55-1.30); GLOMERULAR FILTRATION RATE > 60.0 (>60); GLUCOSE, FASTING 73 MG/DL (60-100); POTASSIUM SERUM 4.1 MMOL/L (3.5-5.1); SODIUM LEVEL 140 MMOL/L (136-145)
[2023-05-27] MEDS ORDERED: ACETAMINOPHEN TAB 650MG DOSE (2X325MG) PO ONE (19:00)
[2023-05-27] MEDS ORDERED: KETOROLAC 30 MG/ML 1ML VIAL IV ONE (19:00)
[2023-05-27 19:33] VITALS: TEMP 98.3; O2SAT 99
[2023-05-27 19:40] VITALS: BP 98/66
== END 2023-05-27 19:53 | disposition home or self-care (01) ==
LOC: M ED 14:01
DX: G43.909 Migraine, unspecified, not intractable, without status migrainosus (principal); K21.9 Gastro-esophageal reflux disease without esophagitis; Z79.52 Long term (current) use of systemic steroids
CPT/HCPCS: 70450; 80048; 84702; 85025; 85652; 96361; 96374; 96375; 99284; J1885; J2765

== ENCOUNTER → 2023-06-03 | Day surgery (SDC) | payer OTHER ==
[~2023-06-03] VITALS: Ht 154.9 cm; Wt 49.6 kg
[~2023-06-03] MED LIST changes: +HYDROMORPHONE HCL 0.5 MG/ 0.5 ML SYRINGE IV PRN; +KETOROLAC 60MG 2ML VIAL As Ordered ONE; +LIDOCAINE 2% 100MG/5ML SDV (FOR ANES.) As Ordered ONE; +LR 1,000 ML IV SCH; +METOCLOPRAMIDE INJ 10MG/2ML VIAL As Ordered ONE; +MIDAZOLAM INJ 2MG/2ML VIAL As Ordered ONE; +NORCO, ANEXSIA 5/325MG TABLET (HYDROcodone/ACETAMINOPHEN) PO PRN; +ONDANSETRON 4MG 2ML VIAL As Ordered ONE; +ONDANSETRON 4MG 2ML VIAL IV PRN; +ROCURONIUM BROMIDE 50MG/5ML VIAL As Ordered ONE; +SUGAMMADEX SODIUM 500 MG/5 ML VIAL (BRIDION) As Ordered ONE; +dexmedeTOMIDine (4MCG/ML)200MCG/50ML BTL (PRECEDEX) As Ordered ONE; +fentaNYL 100 MCG/2 ML INJECTION IV PRN; +fentaNYL 250 MCG/5 ML INJECTION As Ordered ONE; +oxyCODONE 5MG TAB PO PRN; +propofoL 200 MG/20 ML VIAL As Ordered ONE
[2023-06-03 13:40] VITALS: BP 110/54; TEMP 97.5; O2SAT 100
== END | disposition home or self-care (01) ==
LOC: M SDC 08:46
PROVIDERS: ATTEND Surgery
DX: K81.9 Cholecystitis, unspecified (principal); Z79.3 Long term (current) use of hormonal contraceptives
CPT/HCPCS: 47562; 81025; 88304; J0665; J1100; J1170; J1885; J2250; J2405; J2765; J3010; S2900

== ENCOUNTER → 2023-06-11 | Outpatient (CLI) | payer OTHER ==
[~2023-06-11] MED LIST changes: -HYDROMORPHONE HCL 0.5 MG/ 0.5 ML SYRINGE IV PRN; -KETOROLAC 60MG 2ML VIAL As Ordered ONE; -LIDOCAINE 2% 100MG/5ML SDV (FOR ANES.) As Ordered ONE; -LR 1,000 ML IV SCH; -METOCLOPRAMIDE INJ 10MG/2ML VIAL As Ordered ONE; -MIDAZOLAM INJ 2MG/2ML VIAL As Ordered ONE; -NORCO, ANEXSIA 5/325MG TABLET (HYDROcodone/ACETAMINOPHEN) PO PRN; -ONDANSETRON 4MG 2ML VIAL As Ordered ONE; -ONDANSETRON 4MG 2ML VIAL IV PRN; -ROCURONIUM BROMIDE 50MG/5ML VIAL As Ordered ONE; -SUGAMMADEX SODIUM 500 MG/5 ML VIAL (BRIDION) As Ordered ONE; -dexmedeTOMIDine (4MCG/ML)200MCG/50ML BTL (PRECEDEX) As Ordered ONE; -fentaNYL 100 MCG/2 ML INJECTION IV PRN; -fentaNYL 250 MCG/5 ML INJECTION As Ordered ONE; -oxyCODONE 5MG TAB PO PRN; -propofoL 200 MG/20 ML VIAL As Ordered ONE
== END ==
LOC: M PLARAD 14:56
PROVIDERS: ATTEND Internal Medicine Hematology & Oncology
DX: C96.6 Unifocal Langerhans-cell histiocytosis (principal); R41.9 Unspecified symptoms and signs involving cognitive functions and awareness

== ENCOUNTER → 2023-07-19 | Outpatient (CLI) | payer OTHER | LOC: M PLARAD 13:55 | PROVIDERS: ATTEND Internal Medicine Hematology & Oncology | DX: Z85.79 Personal history of other malignant neoplasms of lymphoid, hematopoietic and related tissues (principal) | CPT/HCPCS: 78815; A9552 ==

== ENCOUNTER → 2023-07-30 | Outpatient (REF) | payer OTHER ==
[~2023-07-30] MED LIST changes: +DEPO150I12 IM; -RIZA5TAB2; +RIZA5TAB2 PO
== END ==
LOC: M SFHCLERA 10:59
PROVIDERS: ATTEND Physician Assistant
DX: J22 Unspecified acute lower respiratory infection (principal)

== ENCOUNTER → 2024-03-01 | Outpatient (REF) | payer OTHER ==
[~2024-03-01] MED LIST changes: +ONDA-282 PO; +ONDA-284; -ONDA4TAB6 PO; -ONDA8TAB8
[2024-03-01 15:31] LABS: Trichomonas vaginalis (AMP) NOT DETECTED (NEGATIVE)
[2024-03-01 15:55] LABS: GC DNA AMPLIFICATION NEGATIVE (NEGATIVE)
== END ==
LOC: M LAB REF 12:47
PROVIDERS: ATTEND Nurse Practitioner Family
DX: R30.0 Dysuria (principal); Z11.3 Encounter for screening for infections with a predominantly sexual mode of transmission

== ENCOUNTER → 2024-05-25 | Outpatient (REF) | payer OTHER | LOC: M SFHCWAGY 14:52 | PROVIDERS: ATTEND Nurse Practitioner Family | DX: Z12.4 Encounter for screening for malignant neoplasm of cervix (principal) ==

== ENCOUNTER → 2024-09-14 | Outpatient (CLI) | payer OTHER ==
[~2024-09-14] MED LIST changes: -ALIG4CAP PO; +ALIG4CAP3 PO; -CYCL5TAB PO; +CYCL5TAB4 PO; +LEXA1TAB
[2024-09-14 17:18] LABS: BASO # 0.1 10^3/uL (0.0-0.2); BASO % 0.6 % (0.0-1.0); EOS # 0.1 10^3/uL (0.0-0.5); EOS % 0.6 % (0.0-3.0); HEMATOCRIT 42.1 % (36.0-47.0); HEMOGLOBIN 13.9 g/dl (12.0-15.5); LYMPH # 3.3 10^3/uL (1.5-5.0); LYMPH % 39.1 % (24.0-44.0); MEAN CORPUSCULAR HEMOGLOBIN 29.8 pg (27.0-33.0); MEAN CORPUSCULAR VOLUME 90.3 fl (80.0-96.0); MONO # 0.6 10^3/uL (0.0-0.8); NEUTROPHILS # 4.4 10^3/uL (1.5-8.5); NEUTROPHILS % 52.6 % (36.0-66.0); PLATELET COUNT, AUTOMATED 309 10^3/uL (150-450); RED BLOOD COUNT 4.66 10^6/uL (4.00-5.40); WHITE BLOOD COUNT 8.4 10^3/uL (4.0-10.0)
[2024-09-14 17:20] LABS: RHEUMATOID FACTOR QUANT 5.7 IU/ML (<14)
[2024-09-14 17:25] LABS: ERYTHROCYTE SEDIMENTATION RATE 2 mm/hr (0-20)
[2024-09-14 17:28] LABS: ALBUMIN 4.5 G/DL (3.2-5.2); ALKALINE PHOSPHATASE 90 U/L (35-104); ALT/SGPT 13 U/L (7.0-40); AST/SGOT 8 U/L (<34); BILIRUBIN,TOTAL 0.5 MG/DL (0.3-1.2); BLOOD UREA NITROGEN 9 MG/DL (9-23); CALCIUM LEVEL 10.1 MG/DL (8.5-10.1); CARBON DIOXIDE LEVEL 27 MMOL/L (20-31); CHLORIDE LEVEL 106 MMOL/L (98-107); CREATININE FOR GFR 0.73 MG/DL (0.55-1.30); GLOMERULAR FILTRATION RATE > 60.0 (>60); GLUCOSE, FASTING 82 MG/DL (60-100); POTASSIUM SERUM 3.9 MMOL/L (3.5-5.1); SODIUM LEVEL 141 MMOL/L (136-145); THYROID STIMULATING HORMONE 1.438 uIU/ML (0.55-4.78); TOTAL 25(OH) VITAMIN D 11.2 NG/ML (20.0-100.0)
== END ==
LOC: M WUC 13:47
PROVIDERS: ATTEND Psychiatry & Neurology Neurology
DX: R51.9 Headache, unspecified (principal)

== ENCOUNTER → 2024-09-14 | Outpatient (CLI) | payer OTHER ==
[2024-09-14 17:12] LABS: URINE PREG TEST NEGATIVE (NEGATIVE)
[2024-09-14 17:22] LABS: TOTAL 25(OH) VITAMIN D 16.9 NG/ML (20.0-100.0)
== END ==
LOC: M WUC 13:50
DX: R10.9 Unspecified abdominal pain (principal)

== ENCOUNTER → 2024-11-13 | Outpatient (CLI) | payer OTHER ==
[2024-11-13 15:44] LABS: BASO # 0.1 10^3/uL (0.0-0.2); BASO % 0.7 % (0.0-1.0); EOS % 0.4 % (0.0-3.0); HEMATOCRIT 39.8 % (36.0-47.0); HEMOGLOBIN 13.3 g/dl (12.0-15.5); LYMPH # 2.9 10^3/uL (1.5-5.0); LYMPH % 39.8 % (24.0-44.0); MEAN CORPUSCULAR HEMOGLOBIN 29.9 pg (27.0-33.0); MEAN CORPUSCULAR HGB CONC 33.4 g/dl (32.0-36.5); MEAN CORPUSCULAR VOLUME 89.4 fl (80.0-96.0); MONO # 0.5 10^3/uL (0.0-0.8); MONO % 6.8 % (2.0-8.0); NEUTROPHILS # 3.8 10^3/uL (1.5-8.5); NEUTROPHILS % 51.9 % (36.0-66.0); PLATELET COUNT, AUTOMATED 282 10^3/uL (150-450); RED BLOOD COUNT 4.45 10^6/uL (4.00-5.40); WHITE BLOOD COUNT 7.3 10^3/uL (4.0-10.0)
[2024-11-13 15:57] LABS: LIPASE 28 U/L (12-53)
[2024-11-13 15:59] LABS: ALBUMIN 4.5 G/DL (3.2-5.2); ALKALINE PHOSPHATASE 84 U/L (35-104); ALT/SGPT 11 U/L (7.0-40); AST/SGOT 10 U/L (<34); BILIRUBIN,TOTAL 0.7 MG/DL (0.3-1.2); BLOOD UREA NITROGEN 8 MG/DL (9-23); CALCIUM LEVEL 9.5 MG/DL (8.5-10.1); CARBON DIOXIDE LEVEL 25 MMOL/L (20-31); CHLORIDE LEVEL 107 MMOL/L (98-107); CREATININE FOR GFR 0.74 MG/DL (0.55-1.30); GLOMERULAR FILTRATION RATE > 90.0 (>60); GLUCOSE, FASTING 82 MG/DL (60-100); POTASSIUM SERUM 4.2 MMOL/L (3.5-5.1); SODIUM LEVEL 143 MMOL/L (136-145); TOTAL PROTEIN 7.7 G/DL (5.7-8.2)
== END ==
LOC: M RAD 13:49
DX: R10.9 Unspecified abdominal pain (principal)

== ENCOUNTER 2024-11-20 14:35 | Emergency (ER) | payer OTHER ==
[~2024-11-20] VITALS: Ht 154.9 cm; Wt 55.6 kg
[2024-11-20] MEDS ORDERED: OMEP10CASR PO (14:51)
[2024-11-20 15:15] LABS: BASO # 0.1 10^3/uL (0.0-0.2); BASO % 0.8 % (0.0-1.0); EOS # 0.1 10^3/uL (0.0-0.5); EOS % 0.7 % (0.0-3.0); HEMATOCRIT 40.2 % (36.0-47.0); HEMOGLOBIN 13.4 g/dl (12.0-15.5); LYMPH % 46.3 % (24.0-44.0); MEAN CORPUSCULAR HEMOGLOBIN 30.2 pg (27.0-33.0); MEAN CORPUSCULAR HGB CONC 33.3 g/dl (32.0-36.5); MEAN CORPUSCULAR VOLUME 90.5 fl (80.0-96.0); MONO # 0.6 10^3/uL (0.0-0.8); MONO % 7.2 % (2.0-8.0); NEUTROPHILS # 3.8 10^3/uL (1.5-8.5); NEUTROPHILS % 44.9 % (36.0-66.0); PLATELET COUNT, AUTOMATED 264 10^3/uL (150-450); RED BLOOD COUNT 4.44 10^6/uL (4.00-5.40); WHITE BLOOD COUNT 8.6 10^3/uL (4.0-10.0)
[2024-11-20 15:45] LABS: LIPASE 38 U/L (12-53)
[2024-11-20 15:47] LABS: ALBUMIN 4.7 G/DL (3.2-5.2); ALKALINE PHOSPHATASE 84 U/L (35-104); ALT/SGPT 12 U/L (7.0-40); AST/SGOT 10 U/L (<34); BILIRUBIN,DIRECT 0.2 MG/DL (<0.4); BILIRUBIN,TOTAL 0.5 MG/DL (0.3-1.2); BLOOD UREA NITROGEN 9 MG/DL (9-23); CALCIUM LEVEL 9.2 MG/DL (8.5-10.1); CARBON DIOXIDE LEVEL 26 MMOL/L (20-31); CHLORIDE LEVEL 105 MMOL/L (98-107); CREATININE FOR GFR 0.74 MG/DL (0.55-1.30); GLOMERULAR FILTRATION RATE > 90.0 (>60); GLUCOSE, FASTING 91 MG/DL (60-100); POTASSIUM SERUM 3.7 MMOL/L (3.5-5.1); SODIUM LEVEL 140 MMOL/L (136-145); TOTAL PROTEIN 7.4 G/DL (5.7-8.2)
[2024-11-20 15:54] LABS: HCG, SERUM QUALITATIVE NEGATIVE (NEGATIVE)
[2024-11-20 16:25] LABS: KETONE, URINE AUTO RFX NEGATIVE (NEGATIVE); LEUKOCYTE ESTERASE UR AUTO RFX NEGATIVE (NEGATIVE); NITRITE, URINE AUTO RFX NEGATIVE (NEGATIVE); RBC, URINE AUTO RFX 0 /HPF (0-3); SQUAM EPITHELIAL CELL UR AURFX 0 /HPF (0-6); WBC, URINE AUTO RFX 0 /HPF (0-3)
[2024-11-20 17:02] VITALS: BP 114/68; TEMP 98.6; O2SAT 98
== END 2024-11-20 17:05 | disposition home or self-care (01) ==
LOC: M ED 14:35
DX: R10.9 Unspecified abdominal pain (principal); Z79.3 Long term (current) use of hormonal contraceptives; Z79.899 Other long term (current) drug therapy

== ENCOUNTER → 2025-03-02 | Outpatient (CLI) | payer OTHER ==
[~2025-03-02] MED LIST changes: +OMEP10CASR PO
== END ==
LOC: M RAD 07:49
DX: M67.51 Plica syndrome, right knee (principal)

== ENCOUNTER 2025-04-26 18:10 | Emergency (ER) | payer OTHER ==
[~2025-04-26] VITALS: Ht 154.9 cm; Wt 53.6 kg
[2025-04-26 18:12] VITALS: BP 131/79; TEMP 97.8; O2SAT 100
[2025-04-26] MEDS ORDERED: ZONI50CA11 (18:18)
[2025-04-26 18:46] LABS: KETONE, URINE AUTO RFX NEGATIVE (NEGATIVE); LEUKOCYTE ESTERASE UR AUTO RFX NEGATIVE (NEGATIVE); NITRITE, URINE AUTO RFX NEGATIVE (NEGATIVE); RBC, URINE AUTO RFX 1 /HPF (0-3); SQUAM EPITHELIAL CELL UR AURFX 2 /HPF (0-6); WBC, URINE AUTO RFX 1 /HPF (0-3)
[2025-04-26] MEDS: ACETAMINOPHEN 500 MG TAB PO ONE (18:59)
[2025-04-26 19:10] LABS: BASO # 0.1 10^3/uL (0.0-0.2); BASO % 1.0 % (0.0-1.0); EOS # 0.1 10^3/uL (0.0-0.5); EOS % 1.2 % (0.0-3.0); LYMPH # 3.0 10^3/uL (1.5-5.0); LYMPH % 44.4 % (24.0-44.0); MONO # 0.5 10^3/uL (0.0-0.8); MONO % 6.7 % (2.0-8.0); NEUTROPHILS # 3.2 10^3/uL (1.5-8.5); NEUTROPHILS % 46.4 % (36.0-66.0); PLATELET COUNT, AUTOMATED 236 10^3/uL (150-450)
[2025-04-26 20:16] LABS: HCG, SERUM QUALITATIVE NEGATIVE (NEGATIVE)
[2025-04-26 20:18] LABS: ALT/SGPT 14 U/L (7.0-40); AST/SGOT 13 U/L (<34)
[2025-04-26] MEDS ORDERED: ISOVUE-370 76% 100 ML VIAL As Ordered ONE (20:47)
== END 2025-04-26 21:41 | disposition home or self-care (01) ==
LOC: M ED 18:10
DX: R10.9 Unspecified abdominal pain (principal); M54.9 Dorsalgia, unspecified; R19.7 Diarrhea, unspecified; K57.30 Diverticulosis of large intestine without perforation or abscess without bleeding; Z79.899 Other long term (current) drug therapy
CPT/HCPCS: 74177; 80047; 80076; 81001; 83690; 84703; 85025; 87486; 87581; 87633; 87798; 93005; 99284; Q9967

== ENCOUNTER → 2025-05-22 | Outpatient (CLI) | payer OTHER ==
[~2025-05-22] MED LIST changes: +ZONI50CA11
== END ==
LOC: M WUC 14:28
DX: J06.9 Acute upper respiratory infection, unspecified (principal)